=== PATIENT | male | born 1975 | race Caucasian/White ===

== ENCOUNTER 2017-04-08 09:43 | Emergency (ER) | payer OTHER ==
[2017-04-08] MEDS: NITROGLYCERIN (SL) 0.4 MG TAB SL (10:30)
[2017-04-08] MEDS: SOD CHLORIDE 0.9% 500 ML IV (10:43)
[2017-04-08] MEDS: NICARDipine HCL 30 MG CAPSULE PO (10:43)
[2017-04-08 11:03] LABS: ADD MAN DIFF? NO
[2017-04-08 11:10] LABS: BASOPHILS % 0.7 % (0.0-2.0); EOSINOPHILS # 0.2 10^3/ul (0.0-0.5); HEMATOCRIT 43.5 % (42.0-52.0); HEMOGLOBIN 15.3 g/dl (14.0-18.0); LYMPHOCYTES # 1.2 10^3/ul (0.8-2.9); LYMPHOCYTES % 26.4 % (15.0-51.0); MEAN CORPUSCULAR HEMOGLOBIN 27.8 pg (29.0-33.0); MEAN CORPUSCULAR HGB CONC 35.2 g/dl (32.0-37.0); MEAN CORPUSCULAR VOLUME 79.1 fl (82.0-101.0); MEAN PLATELET VOLUME 10.2 fl (7.4-10.4); MONOCYTE # 0.4 10^3/ul (0.3-0.9); NEUTROPHIL # 2.7 10^3/ul (1.6-7.5); NEUTROPHILS % 60.5 % (39.0-77.0); PLATELET COUNT 195 10^3/UL (140-415); RED CELL DISTRIBUTION WIDTH 14.4 % (11.5-14.5)
[2017-04-08 11:10] LABS: WHITE BLOOD COUNT 4.5 10^3/ul (4.8-10.8)
[2017-04-08 11:40] LABS: ALANINE AMINOTRANSFERASE 44 IU/L (13-69); ALBUMIN 5.1 g/dl (3.3-4.9); ALBUMIN/GLOBULIN RATIO 1.37; ALKALINE PHOSPHATASE 103 IU/L (42-121); ANION GAP 15 (8-16); ASPARTATE AMINO TRANSFERASE 29 IU/L (15-46); BILIRUBIN,INDIRECT 1.5 mg/dl (0-1.1); BILIRUBIN,TOTAL 1.5 mg/dl (0.2-1.3); BLOOD UREA NITROGEN 13 mg/dl (7-20); CALCIUM 9.8 mg/dl (8.4-10.2); CARBON DIOXIDE 30 mmol/L (21-31); CHLORIDE 98 mmol/L (97-110); CREATININE 0.94 mg/dl (0.61-1.24); GLUCOSE 103 mg/dl (70-220); LIPASE 114 U/L (23-300); SODIUM 139 mmol/L (135-144); TOTAL PROTEIN 8.8 g/dl (6.1-8.1)
[2017-04-08 11:59] LABS: TROPONIN-I < 0.012 ng/ml (0.00-0.12)
== END 2017-04-08 12:27 | disposition home or self-care (01) ==
LOC: E/R 09:43
DX: I10 Essential (primary) hypertension (principal)
CPT/HCPCS: 36415; 80053; 83690; 84484; 85025; 93005; 99284-25

== ENCOUNTER 2017-04-08 17:47 | Emergency (ER) | payer SELFPAY, OTHER | END 2017-04-09 00:10 | disposition left against medical advice (07) | LOC: E/R 17:47 | DX: Z53.21 Procedure and treatment not carried out due to patient leaving prior to being seen by health care provider (principal) ==

== ENCOUNTER 2018-08-07 07:17 | Emergency (ER) | payer OTHER ==
[2018-08-07] MEDS: ONDANSETRON (ODT) 4 MG TAB ODT (08:00)
[2018-08-07] MEDS: ACETAMINOPHEN 500 MG TAB PO (08:00)
== END 2018-08-07 08:02 | disposition home or self-care (01) ==
LOC: FTE 08:02
DX: R19.7 Diarrhea, unspecified (principal); I10 Essential (primary) hypertension; E11.9 Type 2 diabetes mellitus without complications
CPT/HCPCS: 99283